=== PATIENT | male | born 2000 | race Asian ===

== ENCOUNTER 2022-06-19 16:44 | Emergency (ER) | payer SELFPAY ==
[~2022-06-19] VITALS: Ht 162.6 cm; Wt 54.4 kg
[2022-06-19 16:46] VITALS: BP_SYST 104
--- NOTE | 2022-06-19 19:41 | NUR ---
Patient to ER bed 04 to gown for evaluation. Side rails up. Report given to Christina MEDEIROS.
[2022-06-19 20:25] LABS: BASOPHILS # (AUTO) 0.1 K/uL (0.0-0.2); EOSINOPHILS # (AUTO) 0.3 K/uL (0.0-0.4); EOSINOPHILS % (AUTO) 2.8 % (0.0-4.0); HEMATOCRIT 46.7 % (36-54); HEMOGLOBIN 15.9 g/dL (14.0-18.0); LYMPHOCYTES # (AUTO) 2.5 K/uL (1.0-5.5); LYMPHOCYTES % (AUTO) 27.7 % (20.5-51.5); MEAN CORPUSCULAR HEMOGLOBIN 30 pg (27-31); MEAN CORPUSCULAR HGB CONC 34 % (32-36); MEAN CORPUSCULAR VOLUME 87 fL (79.0-98.0); MONOCYTES # (AUTO) 0.7 K/uL (0.0-1.0); MONOCYTES % (AUTO) 7.3 % (1.7-9.3); NEUTROPHILS # (AUTO) 5.5 K/uL (1.8-7.7); NEUTROPHILS % (AUTO) 61.2 % (40.0-70.0); PLATELET COUNT (AUTO) 283 K/uL (130-430); RED BLOOD CELL COUNT(AUTO) 5.37 MIL/uL (4.2-6.2); RED CELL DISTRIBUTION WIDTH 13.9 % (9.0-15.0)
[2022-06-19 20:27] LABS: CALCIUM 9.3 mg/dL (8.4-11.0); CREATININE 1.07 mg/dL (0.55-1.30); POTASSIUM 3.3 mmol/L (3.5-5.1)
[2022-06-19 20:33] LABS: ALBUMIN 4.1 g/dL (3.4-4.8); TOTAL BILIRUBIN 0.4 mg/dL (0.0-1.0)
[2022-06-19] MEDS ORDERED: KETOROLAC TROMETHAMINE 30 MG VIAL IM ONE (20:45)
[2022-06-19] MEDS ORDERED: POTASSIUM CHLORIDE 20 MEQ/PKT PACKET PO ONE (20:45)
[2022-06-19] MEDS ORDERED: ACETAMINOPHEN 500 MG TABLET PO ONE (20:45)
--- NOTE | 2022-06-19 20:50 | NUR ---
VESTA USED TO TRANSLATE, PT BIB CAREGIVER/ HOST C/O HEADACHE PAIN 02/13. PT STATED HE TOOK A MEDICATION HE RECEIVED FROM [place] FOR PAIN. MEDICATION UNKNOWN. PT STATES HE HAS NO PAST MDICAL HX OR ALLERGIES. DENIES SYNCOPE, SOB, CHEST PAIN.
[2022-06-19] MEDS ORDERED: IBUP-1969 PO (22:13)
[2022-06-19 22:17] VITALS: BP_SYST 110
--- NOTE | 2022-06-19 22:17 | NUR ---
Patient given written and verbal discharge instructions and verbalizes understanding. ER MD discussed with patient the results and treatment provided. Patient in stable condition. ID arm band removed. Rx of ibuprofen given. Patient educated on pain management and to follow up with PMD. Pain Scale 0/10. Opportunity for questions provided and answered. Medication side effect fact sheet provided.
== END 2022-06-19 22:17 | disposition home or self-care (01) ==
LOC: SED 16:44
DX: G44.209 Tension-type headache, unspecified, not intractable (principal); I30.9 Acute pericarditis, unspecified; R55 Syncope and collapse; R42 Dizziness and giddiness; Z79.899 Other long term (current) drug therapy
CPT/HCPCS: 99285; 70450; 71045; 80053; 82550; 83690; 85025; 85379; 84484; 36415; 93005; 76376; 96372; J1885

== ENCOUNTER 2022-07-05 20:42 | Emergency (ER) | payer SELFPAY ==
[~2022-07-05] VITALS: Ht 162.6 cm; Wt 54.4 kg
[~2022-07-05 20:42] MED LIST: IBUP-1969 PO
[2022-07-05 21:00] VITALS: BP_SYST 133
--- NOTE | 2022-07-05 21:22 | NUR ---
WALKED IN C/O THROBBING 5/10 CHEST WALL PAIN XTODAY. DENIES SOB, N/V, FEVER, CHILLS. 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
--- NOTE | 2022-07-05 21:39 | NUR ---
OFF UNIT TO CT SCAN
--- NOTE | 2022-07-05 21:39 | NUR ---
pt came in with chest pain , ivorian speaker.ambulatory.
[2022-07-05] MEDS ORDERED: IBUP-1969 PO (21:50)
[2022-07-05] MEDS ORDERED: KETOROLAC TROMETHAMINE 60 MG/2 ML VIAL IM ONE (22:15)
--- NOTE | 2022-07-05 22:22 | NUR ---
patient extended family was at bedside.
--- NOTE | 2022-07-05 22:39 | NUR ---
Patient given written and verbal discharge instructions and verbalizes understanding. ER MD discussed with patient the results and treatment provided. Patient in stable condition. ID arm band removed. IV catheter removed intact and dressing applied, no active bleeding. Rx of ibuprofen given. Patient educated on pain management and to follow up with PMD. Pain Scale 2/10 Opportunity for questions provided and answered. Medication side effect fact sheet provided.
[2022-07-05 22:45] VITALS: BP_SYST 98
== END 2022-07-05 22:45 | disposition home or self-care (01) ==
LOC: SED 20:42
DX: M94.0 Chondrocostal junction syndrome [Tietze] (principal); R07.9 Chest pain, unspecified; Z79.899 Other long term (current) drug therapy
CPT/HCPCS: 99283; 96374; 71045; 93005; J1885

== ENCOUNTER 2022-09-23 21:11 | Emergency (ER) | payer SELFPAY ==
[~2022-09-23] VITALS: Ht 152.4 cm; Wt 52.2 kg
[2022-09-23 21:16] VITALS: BP_SYST 110
--- NOTE | 2022-09-23 21:21 | NUR ---
Patient triaged and placed in waiting room. VSS and patient appears in no acute distress at this time. Accompanied by ambulance , awaiting available bed, and MD notified of need for MSE.
--- NOTE | 2022-09-23 21:25 | NUR ---
Pt brought by ambulance , BLS, A&Ox4, pt presents to ER with weakness, flu like symptoms since today,pt recently travel from [place], skin pink and warm, cap refill <3, VSS, will cont to monitor
--- NOTE | 2022-09-23 21:40 | NUR ---
Covid and flu swabs sent to the lab.
[2022-09-23] MEDS ORDERED: ONDANSETRON 4 MG ODT TAB PO ONE (22:30)
[2022-09-23] MEDS ORDERED: MECLIZINE HCL 25 MG TABLET (ANITVERT) PO ONE (22:30)
[2022-09-23] MEDS ORDERED: IBUP-1969 PO (23:31)
[2022-09-23] MEDS ORDERED: ACET-3025 PO (23:31)
[2022-09-23] MEDS ORDERED: MECL-160 PO (23:31)
--- NOTE | 2022-09-23 23:58 | NUR ---
Patient given written and verbal discharge instructions and verbalizes understanding. ER MD discussed with patient the results and treatment provided. Patient in stable condition. ID arm band removed. Rx of TYLENOL, IBUPROFEN & MECLIZINE given. Patient educated on pain management and to follow up with PMD. Pain Scale 0/10. Opportunity for questions provided and answered. Medication side effect fact sheet provided.
[2022-09-24 00:15] VITALS: BP_SYST 110
== END 2022-09-23 23:58 | disposition home or self-care (01) ==
LOC: SED 21:11
DX: G44.209 Tension-type headache, unspecified, not intractable (principal); R42 Dizziness and giddiness; Z79.899 Other long term (current) drug therapy; Z20.822 Contact with and (suspected) exposure to COVID-19
CPT/HCPCS: 99285; 71045; 87426; 36415; 93005; 87804 ×2; Q0162